=== PATIENT | male | born 1965 | race Caucasian/White ===

== ENCOUNTER 2018-01-15 01:04 | Emergency (ER) | payer OTHER ==
[~2018-01-15] VITALS: Ht 177.8 cm; Wt 85.8 kg
[2018-01-15 01:47] LABS: APPEARANCE CLEAR ((CLEAR)); BILIRUBIN NEGATIVE; BLOOD SMALL; COLOR YELLOW ((YELLOW)); GLUCOSE (STRIP) NEGATIVE; KETONES NEGATIVE; LEUKOCYTES NEGATIVE; NITRITE NEGATIVE; PROTEIN (STRIP) NEGATIVE; SPECIFIC GRAVITY 1.023 (1.000-1.030); UROBILINOGEN 0.2 MG/DL (0.2-1.0)
[2018-01-15 01:50] LABS: BACTERIA NONE SEEN /HPF; EPITHELIAL CELLS NONE SEEN /HPF; MUCUS TRACE /LPF; UCUL ADDED? NO; WHITE BLOOD CELLS 0-5 /HPF (0-5)
[2018-01-15 02:02] LABS: HEMATOCRIT 39.8 % (38.0-50.0); HEMOGLOBIN 14.4 G/DL (12.5-16.6); MCH 30.7 PG (29.0-34.0); MCHC 36.2 G/DL (30.0-36.0); MCV 84.9 FL (86-99); PLATELET COUNT 261 K/uL (156-360); RBC DIS.WIDTH-CV 12.6 % (11.8-14.6); RBC DIS.WIDTH-SD 38.1 % (39-53); RED BLOOD COUNT 4.69 M/uL (4.00-5.50); WHITE BLOOD COUNT 10.1 K/uL (4.1-10.2)
[2018-01-15 02:16] LABS: ALBUMIN 4.8 g/dL (3.2-4.8); CHLORIDE 102 mEq/L (99-109); POTASSIUM 4.6 mEq/L (3.7-5.4); SODIUM 139 mEq/L (136-147)
[2018-01-15 02:18] LABS: GLUCOSE 172 mg/dL (70-99)
[2018-01-15 02:19] LABS: TOTAL PROTEIN 7.8 g/dL (6.4-8.3)
[2018-01-15 02:20] LABS: TOTAL BILIRUBIN 0.8 mg/dL (0.0-1.0)
[2018-01-15 02:22] LABS: ALKALINE PHOSPHATASE 95 IU/L (3-129); CREATININE 1.8 mg/dL (0.6-1.3); GFR ESTIMATE (CALCULATED) 42 mL/min/ (58.99-99999)
[2018-01-15 02:23] LABS: UREA NITROGEN (BUN) 33 mg/dL (9-23)
[2018-01-15 02:24] LABS: AST (GOT) 17 IU/L (2-34)
[2018-01-15 02:25] LABS: ALT (GPT) 19 IU/L (3-49)
[2018-01-15 02:26] LABS: LIPASE 11 U/L (1.0-51.0)
[2018-01-15 03:15] VITALS: BP 137/91
[2018-01-15] MEDS ORDERED: FLOMAX0.4 MG PO (03:52)
[2018-01-15] MEDS ORDERED: PERCOCET 5/31 TABLET PO (03:52)
[2018-01-15] MEDS ORDERED: ZOFRAN4 MG PO (03:52)
== END 2018-01-15 04:08 | disposition home or self-care (01) ==
LOC: EME 01:04
DX: N20.2 Calculus of kidney with calculus of ureter (principal); N17.9 Acute kidney failure, unspecified; E11.9 Type 2 diabetes mellitus without complications; I10 Essential (primary) hypertension; E78.5 Hyperlipidemia, unspecified; Z87.442 Personal history of urinary calculi
CPT/HCPCS: 74176; 80053; 81003; 83690; 85027; 99281; 99284; J1885; J2270; J7030